=== PATIENT | male | born 1945 | race Caucasian/White ===

== ENCOUNTER 2018-02-11 12:16 | Emergency (ER) | payer MEDICARE, OTHER ==
[2007-12-30 13:56] VITALS: BP 125/75
[~2018-02-11] VITALS: Ht 175.3 cm; Wt 101.4 kg
[~2018-02-11 12:16] MED LIST: 00186-0370-20 IH; AMITRIPTYLINE H10 M1 PO; AMOXICILLIN/CLA1 TA1; ANDROGEL1.62% TP; ASPIRIN 32325 MG/TAB PO; ASPIRIN 81M81 MG/TA2 PO; BYSTOLIC5 MG PO; COLESTID 1GM1 G PO; COMBIRESP IH; COMBIVENT INH14.7 GM IH; COZAAR 50MG50 MG/TAB PO; CRESTOR 10MG10 MG PO; FLAGYL500 MG PO; GARLIC500 M1 PO; GLUCOPHAGE500 MG/TAB PO; HCTZ 25MG TAB25 MG PO; KETOCONAZOLE21 TP; LEVAQUIN 750MG750 M1 PO; MASON NATURAL1200 MG PO; NAPROSYN250 MG PO; NIACIN TIME-RE500 MG PO; NORCO 325 MG-51 TAB PO; OMEGA 31000 MG PO; PLAVIX 75MG TAB75 MG PO; PRAVACHOL 20MG20 MG PO; PRINIVIL40 MG PO; PROTONIX20 MG PO; VITAMIN D31000 I1 PO; ZANTAC 150MG T150 MG PO; ZOFRAN 4MG T4 MG/TAB PO; ZYLOPRIM 100MG100 MG PO; ZYLOPRIM 300MG300 MG PO; ZYRTEC 10MG10 MG PO; ZYRTEC10 MG PO
[2018-02-11 12:20] VITALS: TEMP 99.9
[2018-02-11 13:24] LABS: BASO % 0.3 % (0.0-2.0); EOS % 0.3 % (0-4.0); GRAN % 82.1 % (42.2-75.2); HEMATOCRIT 39.4 % (42.0-52.0); HEMOGLOBIN 13.4 g/dl (13.5-18.0); LYMPH # 0.8 (1.2-3.4); MEAN CELL VOLUME 90 fl (80.0-100.0); MEAN CORPUSCULAR HEMOGLOBIN 31 pg (27.0-31.0); MEAN CORPUSCULAR HGB CONC 34 g/dl (33.0-37.0); MEAN PLATELET VOLUME 9.6 fl (7.4-10.4); MONO # 0.5 (0.1-0.6); MONO % 6.2 % (1.7-9.3); PLATELET COUNT 172 K/mm3 (130-400); RED BLOOD COUNT 4.37 M/mm3 (4.20-5.60); REDCELL DISTRIBUTION WIDTH-CV 13.7 % (11.5-14.5)
[2018-02-11 13:35] LABS: BILIRUBIN,TOTAL 1.2 mg/dL (0.0-1.0); C-REACTIVE PROTEIN 5.7 mg/dL (0.0-0.9); CALCIUM 8.9 mg/dL (8.4-10.2); CREATININE, serum 1.02 mg/dL (0.66-1.25); POTASSIUM 3.7 mmol/L (3.4-5.0)
[2018-02-11 13:44] LABS: TROPONIN-I 0.014 ng/mL (0.000-0.034)
[2018-02-11 13:54] LABS: ERYTHROCYTE SEDIMENTATION RATE 20 mm/hr (0-30)
[2018-02-11] MEDS ORDERED: NEURONTIN300 MG/CAP PO (14:05)
[2018-02-11 14:36] LABS: COLLECTION METHOD CLEAN CATCH
[2018-02-11 14:43] LABS: PH 7 (5-8); SQUAMOUS EPITHELIAL None Seen /hpf; URINE APPEARANCE Clear; URINE BACTERIA None Seen /hpf; URINE BILIRUBIN Negative (NEGATIVE); URINE BLOOD 1+ (NEGATIVE); URINE COLOR Yellow; URINE GLUCOSE Negative (NEGATIVE); URINE KETONE Negative (NEGATIVE); URINE LEUKOCYTE ESTERASE Negative (NEGATIVE); URINE NITRATE Negative (NEGATIVE); URINE PROTEIN(semi-quant) Negative (NEGATIVE); URINE RBC 0-2 /hpf; URINE UROBILINOGEN Negative (NEGATIVE)
[2018-02-11] MEDS ORDERED: NITROSTAT0.3 MG SL (15:42)
[2018-02-11] MEDS ORDERED: OMEGA-31 SGL PO (15:43)
[2018-02-11 21:45] VITALS: BP 142/72; PULSE 84
== END 2018-02-11 21:45 | disposition short-term general hospital (02) ==
LOC: COL.ER 12:16
PROVIDERS: Emergency Medicine
DX: R51 Headache (principal); M54.5 Low back pain; M54.2 Cervicalgia; R29.898 Other symptoms and signs involving the musculoskeletal system; E11.9 Type 2 diabetes mellitus without complications; I10 Essential (primary) hypertension; E78.00 Pure hypercholesterolemia, unspecified; J44.9 Chronic obstructive pulmonary disease, unspecified; Z79.84 Long term (current) use of oral hypoglycemic drugs; Z79.02 Long term (current) use of antithrombotics/antiplatelets; W19.XXXA Unspecified fall, initial encounter; Y92.009 Unspecified place in unspecified non-institutional (private) residence as the place of occurrence of the external cause
CPT/HCPCS: J7030

== ENCOUNTER 2018-02-21 09:57 | Emergency (ER) | payer MEDICARE, OTHER ==
[2007-12-30 13:56] VITALS: BP 125/75
[~2018-02-21] VITALS: Ht 175.3 cm; Wt 95.5 kg
[~2018-02-21 09:57] MED LIST changes: +NEURONTIN300 MG/CAP PO; +NITROSTAT0.3 MG SL; +OMEGA-31 SGL PO
[2018-02-21 10:02] VITALS: TEMP 99.1
[2018-02-21 10:48] LABS: BASO % 0.2 % (0.0-2.0); EOS # 0.1 (0.0-0.7); EOS % 0.6 % (0-4.0); GRAN # 9.7 (1.4-6.5); GRAN % 86.7 % (42.2-75.2); HEMATOCRIT 35.6 % (42.0-52.0); HEMOGLOBIN 12.1 g/dl (13.5-18.0); LYMPH # 0.9 (1.2-3.4); LYMPH % 7.6 % (20.0-51.0); MEAN CELL VOLUME 89 fl (80.0-100.0); MEAN CORPUSCULAR HEMOGLOBIN 30 pg (27.0-31.0); MEAN CORPUSCULAR HGB CONC 34 g/dl (33.0-37.0); MONO # 0.5 (0.1-0.6); MONO % 4.4 % (1.7-9.3); PLATELET COUNT 285 K/mm3 (130-400); RED BLOOD COUNT 3.98 M/mm3 (4.20-5.60); REDCELL DISTRIBUTION WIDTH-CV 13.6 % (11.5-14.5)
[2018-02-21 10:50] LABS: INR 1.1 (0.8-3.0); PROTHROMBIN TIME 12.8 SECONDS (9.7-12.8)
[2018-02-21 11:02] LABS: ALANINE AMINOTRANSFERASE 38 U/L (21-72); ALBUMIN 3.7 gm/dL (3.5-5.0); ALKALINE PHOSPHATASE 46 U/L (50-136); AST,SGOT 25 U/L (15-37); BLOOD UREA NITROGEN 11 mg/dL (9-20); CALCIUM 8.8 mg/dL (8.4-10.2); CARBON DIOXIDE 28 mmol/L (22-30); CREATININE, serum 1.23 mg/dL (0.66-1.25); GLUCOSE 103 mg/dL (74-106); POTASSIUM 3.6 mmol/L (3.4-5.0); SODIUM 139 mmol/L (137-145); TOTAL PROTEIN 6.7 gm/dL (6.4-8.2)
[2018-02-21 11:10] LABS: CHLORIDE 99 mmol/L (98-107)
[2018-02-21 11:11] LABS: ANION GAP 12 mmol/L (7-16)
[2018-02-21 11:20] LABS: TROPONIN-I < 0.012 ng/mL (0.000-0.034)
[2018-02-21 12:26] LABS: COLLECTION METHOD CLEAN CATCH
[2018-02-21 12:33] LABS: MUCOUS Present /lpf; PH 5 (5-8); SQUAMOUS EPITHELIAL 0-2 /hpf; URINE APPEARANCE Clear; URINE BACTERIA None Seen /hpf; URINE BILIRUBIN Negative (NEGATIVE); URINE BLOOD 1+ (NEGATIVE); URINE COLOR Yellow; URINE GLUCOSE Negative (NEGATIVE); URINE KETONE Negative (NEGATIVE); URINE LEUKOCYTE ESTERASE Negative (NEGATIVE); URINE NITRATE Negative (NEGATIVE); URINE PROTEIN(semi-quant) Negative (NEGATIVE); URINE RBC 0-2 /hpf; URINE UROBILINOGEN Negative (NEGATIVE)
[2018-02-21 12:34] VITALS: BP 113/64; PULSE 87
[2018-02-22] MEDS ORDERED: VANCOCIN H125 MG/CAP PO (12:43)
[2018-02-22] MEDS ORDERED: PROBIOTIC ACID1 EAC3 PO (12:45)
== END 2018-02-21 12:34 | disposition home or self-care (01) ==
LOC: COL.ER 09:57
PROVIDERS: Emergency Medicine
DX: A04.72 Enterocolitis due to Clostridium difficile, not specified as recurrent (principal); E86.9 Volume depletion, unspecified; I10 Essential (primary) hypertension; K21.9 Gastro-esophageal reflux disease without esophagitis; E78.5 Hyperlipidemia, unspecified; E11.9 Type 2 diabetes mellitus without complications; Z90.89 Acquired absence of other organs; Z90.49 Acquired absence of other specified parts of digestive tract; Z87.891 Personal history of nicotine dependence; Z98.890 Other specified postprocedural states; Z79.84 Long term (current) use of oral hypoglycemic drugs
CPT/HCPCS: J7030

== ENCOUNTER → 2018-05-19 | Outpatient (CLI) | payer MEDICARE, OTHER ==
[~2018-05-19] MED LIST changes: +PROBIOTIC ACID1 EAC3 PO; +VANCOCIN H125 MG/CAP PO
== END ==
LOC: COL.RAD 07:50
DX: K92.1 Melena (principal); M54.9 Dorsalgia, unspecified
CPT/HCPCS: A9541

== ENCOUNTER → 2018-06-07 | Outpatient (CLI) | payer MEDICARE, OTHER | LOC: COL.RAD 10:49 | DX: G31.9 Degenerative disease of nervous system, unspecified (principal); R42 Dizziness and giddiness | CPT/HCPCS: A9585 ==

== ENCOUNTER → 2019-02-21 | Outpatient (CLI) | payer MEDICARE, OTHER | LOC: COL.RAD 10:11 | DX: M47.22 Other spondylosis with radiculopathy, cervical region (principal); M47.26 Other spondylosis with radiculopathy, lumbar region; M51.17 Intervertebral disc disorders with radiculopathy, lumbosacral region; M99.73 Connective tissue and disc stenosis of intervertebral foramina of lumbar region; M25.80 Other specified joint disorders, unspecified joint; R20.2 Paresthesia of skin; G62.89 Other specified polyneuropathies; E11.9 Type 2 diabetes mellitus without complications; G89.29 Other chronic pain ==

== ENCOUNTER 2019-03-18 09:45 | Outpatient (RCR) | payer OTHER | END 2019-06-07 | disposition home or self-care (01) | LOC: WSOT | DX: M79.603 Pain in arm, unspecified (principal) ==

== ENCOUNTER 2019-06-24 10:00 | Outpatient (RCR) | payer OTHER | END 2019-07-01 08:36 | disposition home or self-care (01) | LOC: WSC 10:00 | DX: M47.12 Other spondylosis with myelopathy, cervical region (principal); G56.22 Lesion of ulnar nerve, left upper limb ==

== ENCOUNTER → 2019-11-22 | Outpatient (CLI) | payer MEDICARE, OTHER | LOC: COL.RAD 07:30 | DX: I67.82 Cerebral ischemia (principal); G31.9 Degenerative disease of nervous system, unspecified | CPT/HCPCS: A9585 ==

== ENCOUNTER 2020-03-07 11:19 | Day surgery (SDC) | payer MEDICARE ==
[~2020-03-07] VITALS: Ht 177.8 cm; Wt 101.6 kg
[2020-03-07] VITALS (253 sets, daily range): BP systolic 90–154; BP diastolic 52–102; PULSE 49–91; TEMP 98.1–99; O2SAT 92–100
[~2020-03-07 11:19] MED LIST changes: -NITROSTAT0.3 MG SL; +NITROSTAT0.4 MG/TAB SL
[2020-03-07 12:37] LABS: HEMOGLOBIN 12.1 g/dl (13.5-18.0); MEAN CELL VOLUME 91 fl (80.0-100.0); MEAN CORPUSCULAR HEMOGLOBIN 31 pg (27.0-31.0); MEAN CORPUSCULAR HGB CONC 34 g/dl (33.0-37.0); MEAN PLATELET VOLUME 9.6 fl (7.4-10.4); PLATELET COUNT 189 K/mm3 (130-400); RED BLOOD COUNT 3.89 M/mm3 (4.20-5.60); REDCELL DISTRIBUTION WIDTH-CV 14.4 % (11.5-14.5)
[2020-03-07 12:39] LABS: INR 1.2 (0.8-3.0)
[2020-03-07 12:39] LABS: HEMATOCRIT 35.5 % (42.0-52.0)
[2020-03-07 12:44] LABS: CALCIUM 8.5 mg/dL (8.4-10.2); CREATININE, serum 0.85 (0.66-1.25); POTASSIUM 3.4 mmol/L (3.4-5.0)
[2020-03-07] MEDS ORDERED: PROTONIX20 MG PO (13:15)
[2020-03-07] MEDS ORDERED: FIORICET 325 MG1 TA1 PO (13:16)
[2020-03-07] MEDS ORDERED: HCTZ 25MG TAB25 MG PO (13:17)
[2020-03-07] MEDS ORDERED: OSCAL 500 TAB500 MG PO (13:17)
[2020-03-07] MEDS ORDERED: B-121000 MCG PO (13:18)
[2020-03-07] MEDS ORDERED: MASON NATURAL2000 IU PO (13:19)
[2020-03-07] MEDS ORDERED: NITRO-DUR0.2 MG/PAT TD (13:19)
[2020-03-07] MEDS ORDERED: ASPIRIN 81M81 MG/TA2 PO (17:08)
[2020-03-07] MEDS ORDERED: COMBIRESP IH (17:13)
[2020-03-08] VITALS (191 sets, daily range): BP systolic 145–150; BP diastolic 59–77; PULSE 50–55; TEMP 97.1–97.8; O2SAT 88–100
[2020-03-08 07:44] LABS: BASO % 0.2 % (0.0-2.0); EOS # 0.1 (0.0-0.7); EOS % 2.3 % (0-4.0); GRAN % 64.3 % (42.2-75.2); HEMATOCRIT 38.1 % (42.0-52.0); HEMOGLOBIN 13.1 g/dl (13.5-18.0); LYMPH # 1.5 (1.2-3.4); MEAN CELL VOLUME 91 fl (80.0-100.0); MEAN CORPUSCULAR HEMOGLOBIN 31 pg (27.0-31.0); MEAN CORPUSCULAR HGB CONC 34 g/dl (33.0-37.0); MEAN PLATELET VOLUME 9.7 fl (7.4-10.4); MONO # 0.5 (0.1-0.6); PLATELET COUNT 223 K/mm3 (130-400); RED BLOOD COUNT 4.17 M/mm3 (4.20-5.60); REDCELL DISTRIBUTION WIDTH-CV 14.2 % (11.5-14.5)
[2020-03-08 07:58] LABS: CALCIUM 8.8 mg/dL (8.4-10.2); CREATININE, serum 0.74 (0.66-1.25); POTASSIUM 3.5 mmol/L (3.4-5.0)
[2020-03-08] MEDS ORDERED: COZAAR100 MG PO (09:03)
[2020-03-08] MEDS ORDERED: ZIAC 2.5/6.25MG1 TAB PO (09:03)
== END 2020-03-08 10:55 | disposition home or self-care (01) ==
LOC: COL.CAR 11:19 → ICU 16:07 → COL.CAR 03-08 10:55
PROVIDERS: Internal Medicine Cardiovascular Disease
DX: T82.855A Stenosis of coronary artery stent, initial encounter (principal); I25.119 Atherosclerotic heart disease of native coronary artery with unspecified angina pectoris; E11.3219 Type 2 diabetes mellitus with mild nonproliferative diabetic retinopathy with macular edema, unspecified eye; I10 Essential (primary) hypertension; I77.819 Aortic ectasia, unspecified site; J44.9 Chronic obstructive pulmonary disease, unspecified; G47.30 Sleep apnea, unspecified; E78.2 Mixed hyperlipidemia; M10.9 Gout, unspecified; M50.30 Other cervical disc degeneration, unspecified cervical region; K21.9 Gastro-esophageal reflux disease without esophagitis; Z88.2 Allergy status to sulfonamides; Z88.8 Allergy status to other drugs, medicaments and biological substances; Z87.891 Personal history of nicotine dependence; Z79.84 Long term (current) use of oral hypoglycemic drugs; Z79.899 Other long term (current) drug therapy
CPT/HCPCS: OP; J1644; J2250; J3010; Q9967

== ENCOUNTER → 2020-05-22 | Outpatient (CLI) | payer MEDICARE ==
[~2020-05-22] MED LIST changes: +ARICEPT 5MG PO; +B-121000 MCG PO; +COZAAR100 MG PO; +FIORICET 325 MG1 TA1 PO; +IMDUR 30MG30 MG/TAB PO; +MASON NATURAL2000 IU PO; +NITRO-DUR0.2 MG/PAT TD; +OSCAL 500 TAB500 MG PO; +PEPCID 20MG TAB20 MG PO; +PROBIOTIC FORMU1 CAP PO; +ZIAC 2.5/6.25MG1 TAB PO
== END ==
LOC: COL.RAD 08:30
DX: K22.8 Other specified diseases of esophagus (principal)

== ENCOUNTER → 2020-11-27 | Outpatient (CLI) | payer MEDICARE | LOC: COL.RAD 09:00 | DX: K57.30 Diverticulosis of large intestine without perforation or abscess without bleeding (principal) ==

== ENCOUNTER 2023-11-11 20:46 | Emergency (ER) | payer MEDICARE ==
[~2023-11-11] VITALS: Ht 175.3 cm; Wt 85.0 kg
[2023-11-11 20:54] VITALS: TEMP 98.8
[2023-11-11 21:26] LABS: BASO % 0.3 % (0.0-2.0); EOS # 0.3 K/mm3 (0.0-0.7); EOS % 3.4 % (0.0-4.0); GRAN # 4.3 K/mm3 (1.4-6.5); HEMATOCRIT 42.4 % (42.0-52.0); HEMOGLOBIN 14.5 g/dl (13.5-18.0); LYMPH # 2.3 K/mm3 (1.2-3.4); LYMPH % 30.6 % (20.0-51.0); MEAN CELL VOLUME 93 fl (80.0-100.0); MEAN CORPUSCULAR HEMOGLOBIN 32 pg (27-31); MEAN CORPUSCULAR HGB CONC 34 g/dl (33.0-37.0); MEAN PLATELET VOLUME 10.4 fl (7.4-10.4); MONO # 0.6 K/mm3 (0.1-0.6); MONO % 8.4 % (1.7-9.3); PLATELET COUNT 225 K/mm3 (130-400); RED BLOOD COUNT 4.55 M/mm3 (4.20-5.60); REDCELL DISTRIBUTION WIDTH-CV 13.3 % (11.5-14.5)
[2023-11-11] MEDS ORDERED: NS 1,000 ML IV ONE (21:30)
[2023-11-11 21:45] LABS: ALBUMIN 4.1 g/dL (3.4-4.8); BILIRUBIN,TOTAL 1.2 mg/dL (0.2-1.2); CALCIUM 9.8 mg/dL (8.4-10.2); CREATININE, serum 1.05 mg/dL (0.72-1.25); POTASSIUM 3.3 mEq/L (3.5-4.5); TOTAL PROTEIN 7.1 g/dl (6.2-8.1)
[2023-11-11] MEDS ORDERED: Iohexol 300 - 100 ML VIAL IV ONE (22:26)
[2023-11-11] MEDS ORDERED: NS 50 ML IV ONE (22:27)
[2023-11-11] MEDS ORDERED: CIPRO 500MG TA500 MG PO (23:32)
[2023-11-11] MEDS ORDERED: COLACE 100100 MG/CAP PO (23:32)
[2023-11-11] MEDS ORDERED: FLAGYL500 MG PO (23:32)
[2023-11-11] MEDS ORDERED: MIRALAX238G PO (23:33)
[2023-11-11] MEDS ORDERED: Ciprofloxacin 500 MG TAB PO ONE (23:45)
[2023-11-11] MEDS ORDERED: metroNIDAZOLE 250 MG TAB PO ONE (23:45)
[2023-11-11 23:49] VITALS: BP 158/81; PULSE 80
== END 2023-11-12 00:10 | disposition home or self-care (01) ==
LOC: COL.ER 20:46
PROVIDERS: Personal Emergency Response Attendant
DX: K57.32 Diverticulitis of large intestine without perforation or abscess without bleeding (principal); K59.00 Constipation, unspecified; Z79.02 Long term (current) use of antithrombotics/antiplatelets; Z88.2 Allergy status to sulfonamides
CPT/HCPCS: J7030; Q9967